=== PATIENT | female | born 1925 | race Caucasian/White ===

== ENCOUNTER 2016-02-25 15:17 | Emergency (ER) | payer MEDICARE, OTHER ==
[~2016-02-25] VITALS: Ht 157.5 cm; Wt 70.9 kg
[~2016-02-25 15:17] MED LIST: ADV100INH IH; ALBU18HF INH; ATOR40TA69 PO; CALC0.257 PO; CARV25TA2 PO; CHOL5000 PO; CRAN PO; FERR-83 PO; HYDR-3605 PO; LEVO88TA4 PO; LISI-567 PO; MULT-1073 PO; NITR0.4T6 SL; OMEP20CA11 PO; PRAM0.252 PO; TORS10TA5 PO; WARF3TAB7 PO; WARF4TAB6 PO
[2016-02-25 15:46] VITALS: BP 178/40; PULSE 61; RESP 30; O2SAT 100
--- NOTE | 2016-02-25 15:46 | ED.REPORT ---
HPI-Dyspnea / Wheezing Date of Service Feb 25, 2016 ED Provider: The patient is an 89 year old female with history of coronary artery disease, paroxysmal atrial fibrillation on Coumadin, hypertension, hypothyroidism, anemia , COPD, hyperlipidemia, sick sinus syndrome s/p pacemaker, who was brought to the emergency department by EMS for shortness of breath that has worsened over the last 2-3 days. When medics arrived she was 86 % on room air. She has also experienced a cough, sputum production, generalized weakness, and fever. She is able to eat and drink normal. She denies chest pain, nausea, vomiting, diarrhea , abdominal pain, diaphoresis, dysuria or hematuria. Nursing Notes Stated Complaint: SOB Chief Complaint: Respiratory Distress Nursing Notes Reviewed: Yes Allergies: Coded Allergies: amlodipine (Unverified Allergy, Unknown, 10/25/14) sulfamethoxazole (Unverified Allergy, Unknown, 10/25/14) tiotropium (Unverified Allergy, Unknown, 10/25/14) trimethoprim (Unverified Allergy, Unknown, 10/25/14) Scheduled Atorvastatin Calcium (Atorvastatin Calcium) 40 Mg Tablet 40 MG PO DAILY Calcitriol (Rocaltrol) 0.25 Mcg Capsule 0.25 MCG PO DAILY Carvedilol (Carvedilol) 25 Mg Tablet 25 MG PO BID Cholecalciferol (Vitamin D3) (Vitamin D3) 5,000 Unit Capsule 5,000 UNIT PO DAILY Ferrous Sulfate (Ferrous Sulfate) 325 Mg Tablet 325 MG PO TID Fluticasone/Salmeterol (Advair 100-50 Diskus) 60 Puffs/Inh Disk 1 PUFFS IH BID Levothyroxine (Levothyroxine) 88 Mcg Tablet 88 MCG PO DAILY Lisinopril (Lisinopril) 20 Mg Tablet 10 MG PO DAILY Multivits-Min/FA/Lycopene/Lut (Centrum Silver Tablet) 1 Each Tablet 1 EACH PO DAILY Omeprazole (Omeprazole) 20 Mg Capsule.dr 20 MG PO DAILY Pramipexole Dihydrochloride (Mirapex) 0.25 Mg Tablet 0.25 MG PO DAILY Torsemide (Torsemide) 10 Mg Tablet 10 MG PO DAILY Warfarin Sodium (Warfarin Sodium) 3 Mg Tablet 3 MG PO 3 times weekly Warfarin Sodium (Warfarin Sodium) 4 Mg Tablet 4 MG PO 4 times weekly Scheduled PRN Albuterol Sulfate (Ventolin HFA Inhaler) 200 Puff/18 Gm Inhaler 1 PUFF INH Q4 PRN PRN For Wheezing HydrOXYzine HCl (HydrOXYzine HCl) 10 Mg Tablet 10 MG PO DAILY PRN PRN For Itching Miscellaneous Medications Cran/Vitc/Mannose/Fos/Bromeln (Cystex Cranberry Liquid) 1,937 Mg/15 Ml Liquid 1, 937 MG PO Nitroglycerin SL (Nitroglycerin SL) 0.4 Mg Tab.subl 0.4 MG SL General Time Seen by MD: 15:46 Chief Complaint Shortness of breath Hx Obtained From: Patient, EMS Arrived By: Ambulance Sudden in Onset?: No Onset Occurred: 3 days ago Symptom Duration: Since onset Location: : None Severity: Current: No pain currently Severity: Maximum: No pain Recent Healthcare: No recent hospitalization Similar Sx Previous: No Past Medical History Past Medical History 1. Coronary artery disease a. Status post NE x2. b. Status post coronary angiogram in 2006 and 2009. c. No history of interventions. 2. Paroxysmal atrial fibrillation. 3. Chronic Coumadin anticoagulation. 4. Hypertension. 5. Hypothyroidism. 6. Anemia. 7. Chronic obstructive pulmonary disease. 8. Bilateral chronic lower extremity edema. 9. Hyperlipidemia. 10. Hypertension. 11. Restless leg syndrome. 12. Skin cancer. 13. History of tuberculosis in 1971. 14. Cervical disc disease. 15. Sick sinus syndrome, status post pacemaker placement. Past Surgical History 1. Right mastoid surgery in 1953 and 1959. 2. Appendectomy in 1951. 3. Right tympanoplasty in 1959. 4. Hysterectomy 1963. 5. Shoulder and arm fracture in 1965. 6. C5-6 and C6-7 fusion in 1972. 7. Laminectomy of C7 in 1974. 8. Bilateral trapezial bone replacement in 1982. 9. Left patella fracture in 1992. 10. Left elbow fracture in 1995. 11. Right arm fracture in 2004. 12. Right carpal tunnel surgery in 2004. 13. L3-4 and L4-5 laminectomy in 2002. 14. Pacemaker placement in 2005. 15. Bilateral cataract surgeries in 2007. Smoking History Former Smoker Social History Alcohol Use: "Social" Drug Use: Denies drug use Other Social History: Good social support, Lives alone, Local resident Ambulatory Status Independent Review of Systems Constitutional: Reports: Fever Respiratory: Reports: Prod cough, white, Shortness of breath Cardiovascular: Denies: Chest pain Musculoskeletal: Denies: Extremity pain Skin: Denies Diaphoresis Complete sys rev & neg: except as marked. GI: Denies: Abdominal pain, Diarrhea, Nausea, Vomiting Female: Denies: Dysuria, Hematuria Physical Exam Initial Vital Signs Vital Signs (First) Date Time Temp Pulse Resp B/P Pulse Ox O2 Delivery O2 Flow Rate FiO2 02/25/16 15:46 38 61 30 178/40 100 BiPAP Initial VS: Reviewed Head / Eyes: Atraumatic, Normocephalic, PERRL ENT: Mucous membranes moist, Conjunctiva normal, No scleral icterus Abdomen / GI: Soft, Non-tender, No guarding, No rebound, No distention Lymphatic: No lymphadenopathy Extremities: Vascular intact, Neuro intact, No swelling, No tenderness Skin: Warm, Dry, No cyanosis Neurologic: Alert, Oriented, Nonfocal Psychiatric: Mood/affect normal, Behavior normal, Normal thought content General/Constitutional: Awake, Alert Neck: Atraumatic, Supple, No meningismus, Full range of motion, No swelling, Non-tender, No masses Respiratory / Chest: Breath sounds = bilat, No respiratory distress Wheezing / Retractions: Positive: Wheezing expiratory Cardiovascular: Heart rate NL, Regular rhythm, Heart sounds NL, No gallop, No murmurs, No rubs, Peripheral circulation NL Lower Extremity / Pelvis / MS: Neurologic intact, Vascular intact, No edema Interpretation & Diagnostics Lab Results Interpretation Result Diagram: 02/25/16 1640 02/25/16 1640 Test 02/25/16 16:40 02/25/16 17:37 White Blood Count 6.4th/mm3 (3.8-10.1) Red Blood Count 3.19mil/mm3 (3.90-5.20) Hemoglobin 9.9g/dL (12.0-15.6) Hematocrit 29.5% (35.0-46.0) Mean Corpuscular Volume 92.5fL (81-100) Mean Corpuscular Hemoglobin 31.0pg (27.0-35.0) Mean Corpuscular Hemoglobin Concent 33.6% (32.0-37.0) Red Cell Distribution Width 13.8% (12.3-15.4) Platelet Count 134bil/L (150-400) Neutrophils (%) (Auto) 82.4% (40-74) Lymphocytes (%) (Auto) 8.2% (14-46) Monocytes (%) (Auto) 6.9% (4-12) Eosinophils (%) (Auto) 2.0% (0-5) Basophils (%) (Auto) 0.3% (0-3) Prothrombin Time 17.0sec (8.1-12.5) Prothromb Time International Ratio 1.57ratio Sodium Level 142mEq/L (134-144) Potassium Level 3.7mEq/L (3.5-5.2) Chloride Level 102mEq/L (97-108) Carbon Dioxide Level 24mmol/L (18-29) Blood Urea Nitrogen 42mg/dL (8-27) Creatinine 1.73mg/dL (0.57-1.00) Estimat Glomerular Filtration Rate 40mL/min (>59) Glucose Level 147mg/dL (60-99) Lactic Acid Level 0.9mmol/L (0.4-2.0) Calcium Level 9.4mg/dL (8.5-10.1) Magnesium Level 2.0mg/dL (1.6-2.6) Total Bilirubin 0.4mg/dL (0.0-1.2) Aspartate Amino Transf (AST/SGOT) 22U/L (0-50) Alanine Aminotransferase (ALT/SGPT) 30U/L (0-32) Alkaline Phosphatase 59U/L (25-165) Troponin T < 0.010ug/L (0.0-0.011) Pro-B-Type Natriuretic Peptide 3711pg/mL (0-738) Total Protein 6.3g/dL (6.4-8.4) Albumin 4.0g/dL (3.4-5.0) Urine Color Yellow (YELLOW) Urine Appearance Hazy (CLEAR,HAZY) Urine pH 6.0 (5.0-8.0) Urine Specific [place] 1.020 (1.003-1.035) Urine Protein 30mg/dL (NEG,TRACE) Urine Glucose (UA) Negativemg/dL (NEGATIVE) Urine Ketones Negativemg/dL (NEGATIVE) Urine Occult Blood Moderate (NEGATIVE) Urine Nitrite Positive (NEGATIVE) Urine Bilirubin Negative (NEGATIVE) Urine Urobilinogen Normalmg/dL (NORMAL) Urine Leukocyte Esterase Moderate (NEGATIVE) Urine RBC 0-2/hpf (0-2) Urine WBC 6-10/hpf (0-5) Urine Epithelial Cells None/hpf (NONE-MOD) Urine Crystals None seen (NONE SEEN) Urine Bacteria Few/hpf (NONE-FEW) Urine Hyaline Casts None/lpf (NONE) Urine Granular Casts None seen (NONE SEEN) Urine Waxy Casts None seen (NONE SEEN) Urine Red Blood Cell Casts None seen (NONE SEEN) Urine White Blood Cell Casts None seen (NONE SEEN) Urine Mucus Present (None Seen) Urine Trichomonas None seen (NONE SEEN) Urine Yeast None (NONE SEEN) Urinalysis Comment None Urine Culture Reflexed Indicated ECG Interpretation ECG Interpretation: Sinus rhythm with nonspecific ST changes and a PVC Time: 16:50 Interpreted by: ED physician X-Ray Chest Interpretation Chest Xray Interpretation: IMPRESSION: Cardiomegaly with mild increased pulmonary vascularity, suggestive of edema. Dictated by: Shivani Workman M.D. on 02/25/2016 at 17:14 Interpretation / Wet Read by: Interpret - Radiologist Re-Eval/Medical Decision Med Decision/Clinical Course Patient with influenza A, she was mildly hypoxic prior to arrival. She received a single neb and has remained largely symptomatically since. She passed a road test with normal ambulatory function and oxygenation. The patient will be treated with Tamiflu. A single dose of dexamethasone was given as well. Patient confirms that she has inhalers and AeroChamber at home and agrees to use them as planned. We will give strict return and follow-up precautions. Source of Hx: Old records, EMS Re-Evaluation/Progress #1: Time of Eval: 18:14 Re-Evaluation/Progress Note: Rechecked the patient. She is feeling better. Discussed plan for road test and discharge. All questions were addressed. Re-Evaluation/Progress #2: Time of Eval: 18:24 Re-Evaluation/Progress Note: The patient was 93-94 on room air during road test. Counseled Regarding: Diagnosis, Lab results Discharge & Departure Impression: Primary Impression: Influenza A Disposition: Home Discharge Condition All VS Reviewed: Yes Condition: Stable Patient Instructions: Influenza (DC) Additional Instructions: Thank you for entrusting us with your care today. Your labs, chest x-ray, and EKG today are reassuring. There is no sign of a heart attack, pneumothorax or pneumonia. I believe your symptoms are related to influenza A. Continue taking your normal medications as prescribed. Add tamiflu. Use albuterol 2-4 puffs every 4 hours as needed for your breathing. call your regular doctor tomorrow for recheck. Return to the emergency department if you develop difficulty breathing, chest pain, fever, chills, vomiting, or any other new or concerning symptoms. Referrals: Kosta Morales MD (PCP) Scribe Attestation Portions of this note were transcribed by Yanet Gracia. I, Dr. Balbuena personally performed the history, physical exam and medical decision-making; I reviewed and confirmed the accuracy of the information in the transcribed note. Signed by: Jose Rafael Lowe, 02/25/2016 and 1830. copies to: Kotsa Morales MD, Timothy S DO Feb 25, 2016 15:46 Yanet Gracia Feb 25, 2016 15:49
[2016-02-25] MEDS ORDERED: Albuterol-Ipratropium 3 mL Inhalation Solution ONE (15:51)
[2016-02-25 16:09] VITALS: PULSE 71; RESP 24; O2SAT 95
[2016-02-25 17:00] LABS: BASOPHILS % (AUTO) 0.3 % (0-3); MONOCYTES % (AUTO) 6.9 % (4-12); Mean Corpuscular Volume 92.5 fL (81-100); NEUTROPHILS % (AUTO) 82.4 % (40-74); Platelet Count 134 bil/L (150-400)
--- NOTE | 2016-02-25 17:16 | DRSVH ---
PROCEDURE: X-RAY CHEST ONE VIEW, PORTABLE ([id number]) INDICATIONS: dyspnea, wheezing, cough TECHNIQUE: One view of the chest was acquired. COMPARISON: MEENAKSHI Peraza, CHEST 2VW, 06/13/2014, 9:50. FINDINGS: Surgical changes and devices: Pacemaker. Lungs and pleura: Chronic interstitial changes are present. There is normal appearance of mild increa sed pulmonary vascularity. Mediastinum: Mediastinal contours appear normal. Heart size is enlarged. Bones and chest wall: No suspicious bony lesions. Overlying soft tissues appear unremarkable. IMPRESSION: Cardiomegaly with mild increased pulmonary vascularity, suggestive of edema. Dictated by: Shivani Workman M.D. on 02/25/2016 at 17:14 Approved by: Shivani Workman M.D. on 02/25/2016 at 17:14
[2016-02-25 17:46] LABS: TROPONIN T < 0.010 ug/L (0.0-0.011)
[2016-02-25 17:54] LABS: APPEARANCE,URINE HAZY (CLEAR,HAZY); COLOR,URINE YELLOW (YELLOW); OCCULT BLOOD,URINE MODERATE (NEGATIVE); UROBILINOGEN,URINE NORMAL (NORMAL)
[2016-02-25 18:34] LABS: INR 1.57 ratio
[2016-02-25] MEDS ORDERED: Dexamethasone 10 mg/mL Inj IVPUSH ONE (19:30)
[2016-02-25] MEDS ORDERED: TAM75UDCAP PO (19:33)
[2016-02-25 20:02] VITALS: BP 177/48; PULSE 58; RESP 15; O2SAT 97
[2016-07-29] MEDS ORDERED: CIPR-232 PO (10:55)
== END 2016-02-25 20:03 | disposition home or self-care (01) ==
LOC: EDBD 15:17 → SED 15:17 → EDUNIT# 15:17 → SED 20:03
DX: J10.89 Influenza due to other identified influenza virus with other manifestations (principal); R06.02 Shortness of breath; R05 Cough; R50.9 Fever, unspecified; R53.1 Weakness; I25.2 Old myocardial infarction; I25.10 Atherosclerotic heart disease of native coronary artery without angina pectoris; I48.0 Paroxysmal atrial fibrillation; I10 Essential (primary) hypertension; J44.9 Chronic obstructive pulmonary disease, unspecified; E78.5 Hyperlipidemia, unspecified; D64.9 Anemia, unspecified; E03.9 Hypothyroidism, unspecified; I49.5 Sick sinus syndrome; Z87.891 Personal history of nicotine dependence; Z95.0 Presence of cardiac pacemaker; Z79.01 Long term (current) use of anticoagulants; Z88.8 Allergy status to other drugs, medicaments and biological substances; Z88.2 Allergy status to sulfonamides; Z88.1 Allergy status to other antibiotic agents
CPT/HCPCS: 36415; 71010; 80053; 81000; 83605; 83735; 83880; 84484; 85025; 85610; 87040; 87086; 87088; 87186; 87804; 93005; 94664; 96374; 99285; J1100; J7620